=== PATIENT | male | born 1935 | race Caucasian/White ===

== ENCOUNTER 2018-02-11 14:59 | Emergency (ER) | payer OTHER ==
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
[2018-02-11] MEDS: DIPH,PERTUSS(ACELL),TET VAC/PF 0.5 ML DISP.SYRIN IM ONE (15:35)
[2018-02-11 15:56] LABS: BASOPHILS % 0.3 (0.0-1.5); EOSINOPHILS % 3.1 % (0.0-6.8); MEAN CORPUSCULAR HEMOGLOBIN 33.7 pg (28.0-34.0); MONOCYTES % 7.4 % (0.0-11.0)
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
[2018-02-11 16:30] VITALS: BP 147/84
== END 2018-02-11 16:27 | disposition home or self-care (01) ==
LOC: ED 14:59
DX: S01.01XA Laceration without foreign body of scalp, initial encounter (principal); S61.412A Laceration without foreign body of left hand, initial encounter; V87.7XXA Person injured in collision between other specified motor vehicles (traffic), initial encounter; X58.XXXA Exposure to other specified factors, initial encounter; Y92.410 Unspecified street and highway as the place of occurrence of the external cause; Y93.9 Activity, unspecified; Y99.9 Unspecified external cause status
CPT/HCPCS: 70450; 72125; 80053; 85025; 90471; 90715; 99284